=== PATIENT | female | born 1945 | race Caucasian/White ===

== ENCOUNTER 2016-12-25 07:59 | Emergency (ER) | payer MEDICARE ==
[~2016-12-25] VITALS: Ht 160 cm; Wt 61.4 kg
[~2016-12-25 07:59] MED LIST: ADVAIR DISK1 INH; ADVAIR HF1 IN; ADVAIR HF2; ADVIL200 MG; ALBUTEROL2.5 MG/31 IN; ALENDRONATE70 MG; ALENDRONATE70 MG PO; ALLEGRA180 MG PO; ALPHAGAN P0.1 % OU; ALPHAGAN5 ML OU; ALTOPREV20 MG; ALTOPREV20 MG OR; ATROVENT I0.5 MG/VIA IN; BABY ASPIRIN81 MG; BACTRIM DS1 TAB PO; BAYER LOW DOSE81 MG PO; BAYER LOW81 MG PO; BRIMONIDINE0.2 % OP; CALCIUM500 MG/D PO; CALCIUM600 M2 PO; CARVEDILOL6.25 MG PO; CENTRUM OR; CEPHALEXIN500 MG PO; CIPRO250 MG PO; COMBIVENT; COMBIVENT IN; COMBIVENT RESPIMAT IN; COREG6.25 MG PO; DOXYCYC MONO100 MG OR; EYE DROP3; FLAGYL ER750 MG PO; HYDROCO/APAP1 TA9 PO; LISINOPRIL20 MG PO; LORTAB 5 PO; Levaquin PO; MEDDOSEPAK PO; METFORMIN500 M1 PO; METFORMIN500 MG; METFORMIN500 MG PO; METFORMIN850 MG PO; MUCINEX600 MG PO; MULTI 501 PO; MULTIVITAMIN; OMEPRAZOLE40 MG PO; PRAVACHOL20 MG PO; PRAVASTATIN20 MG PO; PREDNISONE10 MG PO; PROAIR HFA IN; PROBIOTIC DAILY1 CAP PO; PROVENTIL0.083 % IN; QUINAPRIL5 MG; ROBITUSSIN AC10 ML PO; SPIRIVA IN; SPIRONOLACT25 MG PO; TAMOXIFEN CITRA20 MG PO; TRADJENTA5 MG PO; VITAMIN D400 UNI3 PO; XANAX0.25 MG PO; ZOFRAN4 MG/TAB PO; ZYLET1 ML OP; ZYLET1 ML OU; [UNRECOGNIZED DRUG - OTHER] PO
[2016-12-25] MEDS ORDERED: (None)3.5 GM OD (08:17)
[2016-12-25] MEDS ORDERED: CEPHALEXIN500 MG PO (08:17)
[2016-12-25] MEDS ORDERED: GENTAMICIN15 ML/BTL OD (08:17)
[2016-12-25 08:23] VITALS: BP 141/73
== END 2016-12-25 08:33 | disposition home or self-care (01) ==
LOC: ED 07:59
DX: H10.9 Unspecified conjunctivitis (principal)

== ENCOUNTER 2017-04-17 11:49 | Emergency (ER) | payer MEDICARE ==
[~2017-04-17] VITALS: Ht 160 cm; Wt 58.0 kg
[~2017-04-17 11:49] MED LIST changes: +(None)3.5 GM OD; +GENTAMICIN15 ML/BTL OD
[2017-04-17] MEDS ORDERED: TYLENOL 8 HOUR650 MG PO (12:16)
[2017-04-17] MEDS ORDERED: SYMBICORT1 AE1 IN (12:17)
[2017-04-17] MEDS ORDERED: FUROSEMIDE20 MG PO (12:17)
[2017-04-17] MEDS ORDERED: OMEPRAZOLE10 MG PO (12:18)
[2017-04-17 12:19] LABS: HEMATOCRIT 39.6 % (37.0-47.0); HEMOGLOBIN 12.6 g/dl (12.0-16.0); IMMATURE GRANULOCYTES 0.5 % (0.0-1.0); MEAN CORPUSCULAR HGB 31.2 pG CALC (26.0-32.0); MEAN CORPUSCULAR HGB CONC 31.8 g/L CALC (32.0-36.0); NEUT# 6.3 thou/uL (2.00-7.15); RED BLOOD COUNT 4.04 mill/uL (4.20-5.60); RED CELL DISTRI WIDTH 13.8 % (11.5-15.5)
[2017-04-17 12:35] LABS: ALBUMIN 4.1 g/dL (3.2-5.0); ALKALINE PHOSPHATASE 29 u/l (38-126); ANION GAP 15 (6-22 (CALC)); BILIRUBIN, TOTAL 0.4 mg/dL (0.0-1.4); BUN 20 mg/dL (8-23); BUN/CREATININE RATIO 33 (12-20 (CALC)); CALCIUM 8.6 mg/dL (8.4-10.2); CARBON DIOXIDE 29 mmol/l (22-30); CHLORIDE 100 mmol/l (95-108); CREATININE 0.6 mg/dL (0.5-1.0); GFR > 60 ML/MIN (>=60 (CALC)); GFR FOR AFR.AMER. > 60 ML/MIN (>=60 (CALC)); GLUCOSE 166 mg/dL (82-115); POTASSIUM 3.9 mmol/l (3.5-5.1); SGOT/AST 24 u/l (9-36); SGPT/ALT 32 u/l (11-66); SODIUM 141 mmol/l (137-146); TOTAL PROTEIN 6.4 g/dL (6.3-8.2)
[2017-04-17 12:47] LABS: MYOGLOBIN 30 ng/mL (0 - 62)
[2017-04-17] MEDS ORDERED: PREDNISONE50 MG PO ×2 (13:23→14:31)
[2017-04-17] MEDS ORDERED: LEVAQUIN500 MG PO ×2 (13:23→14:31)
[2017-04-17 14:20] VITALS: BP 137/67
[2017-04-17] MEDS ORDERED: MUCINEX600 MG PO (14:31)
== END 2017-04-17 14:57 | disposition home or self-care (01) ==
LOC: ED 11:49
PROVIDERS: Emergency Medicine
DX: J44.1 Chronic obstructive pulmonary disease with (acute) exacerbation (principal); I11.0 Hypertensive heart disease with heart failure; I50.9 Heart failure, unspecified; E11.9 Type 2 diabetes mellitus without complications; E78.5 Hyperlipidemia, unspecified; M19.90 Unspecified osteoarthritis, unspecified site

== ENCOUNTER 2017-05-03 17:05 | Inpatient (IN) | payer MEDICARE ==
[~2017-05-03] VITALS: Ht 160 cm; Wt 61.5 kg
[~2017-05-03 17:05] MED LIST changes: +FUROSEMIDE20 MG PO; +LEVAQUIN500 MG PO; +OMEPRAZOLE10 MG PO; +PREDNISONE50 MG PO; +SYMBICORT1 AE1 IN; +TYLENOL 8 HOUR650 MG PO
[2017-05-03 17:45] VITALS: BP 150/75
[2017-05-03 18:09] LABS: HEMATOCRIT 38.5 % (37.0-47.0); HEMOGLOBIN 12.2 g/dl (12.0-16.0); IMMATURE GRANULOCYTES 0.8 % (0.0-1.0); MEAN CELL VOLUME 97.7 fL CALC (80.0-100.0); MEAN CORPUSCULAR HGB CONC 31.7 g/L CALC (32.0-36.0); NEUT# 8.19 thou/uL (2.00-7.15); RED BLOOD COUNT 3.94 mill/uL (4.20-5.60); RED CELL DISTRI WIDTH 14.4 % (11.5-15.5)
[2017-05-03 18:26] LABS: ANION GAP 15 (6-22 (CALC)); BUN 18 mg/dL (8-23); BUN/CREATININE RATIO 31 (12-20 (CALC)); CALCIUM 9.3 mg/dL (8.4-10.2); CARBON DIOXIDE 27 mmol/l (22-30); CHLORIDE 102 mmol/l (95-108); CREATININE 0.6 mg/dL (0.5-1.0); GFR > 60 ML/MIN (>=60 (CALC)); GFR FOR AFR.AMER. > 60 ML/MIN (>=60 (CALC)); GLUCOSE 226 mg/dL (82-115); SODIUM 140 mmol/l (137-146)
[2017-05-03 19:30] VITALS: BP 107/51
[2017-05-04] VITALS (7 sets, daily range): BP systolic 105–139; BP diastolic 46–64
[2017-05-04 06:06] LABS: HEMATOCRIT 35.6 % (37.0-47.0); HEMOGLOBIN 11.4 g/dl (12.0-16.0); MEAN CELL VOLUME 96.7 fL CALC (80.0-100.0); RED BLOOD COUNT 3.68 mill/uL (4.20-5.60); RED CELL DISTRI WIDTH 14.3 % (11.5-15.5)
[2017-05-04 06:31] LABS: ANION GAP 15 (6-22 (CALC)); BUN 16 mg/dL (8-23); BUN/CREATININE RATIO 31 (12-20 (CALC)); CARBON DIOXIDE 27 mmol/l (22-30); CHLORIDE 103 mmol/l (95-108); CREATININE 0.5 mg/dL (0.5-1.0); GFR > 60 ML/MIN (>=60 (CALC)); GFR FOR AFR.AMER. > 60 ML/MIN (>=60 (CALC)); GLUCOSE 229 mg/dL (82-115); POTASSIUM 4.4 mmol/l (3.5-5.1); SODIUM 141 mmol/l (137-146)
[2017-05-04 06:32] LABS: URINE BILIRUBIN - DIPSTICK NEGATIVE (NEGATIVE); URINE BLOOD DIPSTICK NEGATIVE (NEGATIVE); URINE CLARITY SLIGHT CLOUDY; URINE COLOR YELLOW; URINE GLUCOSE - DIPSTICK NEGATIVE (NEGATIVE); URINE KETONE NEGATIVE (NEGATIVE); URINE LEUK ESTERASE TRACE (Negative); URINE NITRITE - DIPSTICK NEGATIVE (Negative); URINE PH 5.5 (4.5-8.0); URINE PROTEIN - DIPSTICK NEGATIVE (NEG-TRACE); URINE UROBILINOGEN - DIPSTICK 0.2 E.U./dL (0.2)
[2017-05-05 05:07] VITALS: BP 123/42
[2017-05-05 06:30] LABS: HEMATOCRIT 32.6 % (37.0-47.0); HEMOGLOBIN 10.5 g/dl (12.0-16.0); IMMATURE GRANULOCYTES 1.3 % (0.0-1.0); MEAN CELL VOLUME 96.7 fL CALC (80.0-100.0); MEAN CORPUSCULAR HGB 31.2 pG CALC (26.0-32.0); MEAN CORPUSCULAR HGB CONC 32.2 g/L CALC (32.0-36.0); NEUT# 13.87 thou/uL (2.00-7.15); RED BLOOD COUNT 3.37 mill/uL (4.20-5.60); RED CELL DISTRI WIDTH 14.1 % (11.5-15.5)
[2017-05-05 07:14] LABS: ANION GAP 16 (6-22 (CALC)); BUN 20 mg/dL (8-23); BUN/CREATININE RATIO 29 (12-20 (CALC)); CALCIUM 8.5 mg/dL (8.4-10.2); CARBON DIOXIDE 29 mmol/l (22-30); CHLORIDE 96 mmol/l (95-108); CREATININE 0.7 mg/dL (0.5-1.0); GFR > 60 ML/MIN (>=60 (CALC)); GFR FOR AFR.AMER. > 60 ML/MIN (>=60 (CALC)); GLUCOSE 270 mg/dL (82-115); MAGNESIUM 1.4 mg/dL (1.6-2.3); POTASSIUM 4.5 mmol/l (3.5-5.1); SODIUM 136 mmol/l (137-146)
[2017-05-05 07:19] VITALS: BP 159/63
[2017-05-05] MEDS ORDERED: BEVESPI AEROSPH1 AER IN (09:32)
[2017-05-05] MEDS ORDERED: SINGULAIR10 MG PO (09:34)
[2017-05-05] MEDS ORDERED: PREDNISONE10 MG PO (13:12)
[2017-05-05] MEDS ORDERED: VIBRAMYCIN100 M2 PO (13:12)
[2017-05-05] MEDS ORDERED: IPRATROPIU0.5 MG/3 M IN (13:12)
== END 2017-05-05 14:43 | disposition home health service (06) | DRG 189 ==
LOC: MS2 17:05
PROVIDERS: Nurse Practitioner Family; ADMIT Internal Medicine; ATTEND Internal Medicine
DX: J96.21 Acute and chronic respiratory failure with hypoxia (principal); I50.22 Chronic systolic (congestive) heart failure; J44.0 Chronic obstructive pulmonary disease with (acute) lower respiratory infection; Z99.81 Dependence on supplemental oxygen; J44.1 Chronic obstructive pulmonary disease with (acute) exacerbation; I51.81 Takotsubo syndrome; I10 Essential (primary) hypertension; E78.5 Hyperlipidemia, unspecified; E11.9 Type 2 diabetes mellitus without complications; M85.80 Other specified disorders of bone density and structure, unspecified site; K57.30 Diverticulosis of large intestine without perforation or abscess without bleeding; K52.9 Noninfective gastroenteritis and colitis, unspecified; R53.1 Weakness; K21.9 Gastro-esophageal reflux disease without esophagitis; H40.9 Unspecified glaucoma; J20.9 Acute bronchitis, unspecified; Z85.3 Personal history of malignant neoplasm of breast; Z92.3 Personal history of irradiation; Z90.12 Acquired absence of left breast and nipple; Z87.891 Personal history of nicotine dependence; Z79.84 Long term (current) use of oral hypoglycemic drugs

== ENCOUNTER 2017-08-16 09:41 | Inpatient (IN) | payer MEDICARE ==
[~2017-08-16] VITALS: Ht 160 cm; Wt 60.0 kg
[~2017-08-16 09:41] MED LIST changes: +BEVESPI AEROSPH1 AER IN; +IPRATROPIU0.5 MG/3 M IN; +SINGULAIR10 MG PO; +VIBRAMYCIN100 M2 PO
[2017-08-16 10:23] LABS: HEMATOCRIT 39.1 % (37.0-47.0); HEMOGLOBIN 12.6 g/dl (12.0-16.0); IMMATURE GRANULOCYTES 0.8 % (0.0-1.0); MEAN CELL VOLUME 97.3 fL CALC (80.0-100.0); MEAN CORPUSCULAR HGB 31.3 pG CALC (26.0-32.0); MEAN CORPUSCULAR HGB CONC 32.2 g/L CALC (32.0-36.0); NEUT# 10.45 thou/uL (2.00-7.15); RED BLOOD COUNT 4.02 mill/uL (4.20-5.60); RED CELL DISTRI WIDTH 16.6 % (11.5-15.5)
[2017-08-16 10:37] LABS: ALKALINE PHOSPHATASE 40 u/l (38-126); ANION GAP 15 (6-22 (CALC)); BILIRUBIN, TOTAL 0.7 mg/dL (0.0-1.4); BUN 17 mg/dL (8-23); BUN/CREATININE RATIO 29 (12-20 (CALC)); CALCIUM 9.4 mg/dL (8.4-10.2); CARBON DIOXIDE 30 mmol/l (22-30); CHLORIDE 97 mmol/l (95-108); CREATININE 0.6 mg/dL (0.5-1.0); GFR > 60 ML/MIN (>=60 (CALC)); GFR FOR AFR.AMER. > 60 ML/MIN (>=60 (CALC)); GLUCOSE 138 mg/dL (82-115); MAGNESIUM 1.7 mg/dL (1.6-2.3); POTASSIUM 4.2 mmol/l (3.5-5.1); SGOT/AST 25 u/l (9-36); SGPT/ALT 39 u/l (11-66); SODIUM 138 mmol/l (137-146); TOTAL PROTEIN 6.1 g/dL (6.3-8.2)
[2017-08-16] MEDS ORDERED: ARTIFI TEAR1 OP (10:44)
[2017-08-16 10:47] LABS: MYOGLOBIN 25 ng/mL (0 - 62)
[2017-08-16 13:39] VITALS: BP 173/65
[2017-08-16 13:50] VITALS: BP 142/48
[2017-08-16 17:23] LABS: URINE BILIRUBIN - DIPSTICK NEGATIVE (NEGATIVE); URINE BLOOD DIPSTICK NEGATIVE (NEGATIVE); URINE COLOR YELLOW; URINE GLUCOSE - DIPSTICK >=1000 mg/dL (NEGATIVE); URINE KETONE NEGATIVE (NEGATIVE); URINE LEUK ESTERASE NEGATIVE (NEGATIVE); URINE NITRITE - DIPSTICK NEGATIVE (Negative); URINE PROTEIN - DIPSTICK NEGATIVE (NEG-TRACE); URINE UROBILINOGEN - DIPSTICK 0.2 E.U./dL (0.2)
[2017-08-16 17:27] LABS: URINE CLARITY CLEAR
[2017-08-16 18:30] VITALS: BP 126/71
[2017-08-17] VITALS (7 sets, daily range): BP systolic 101–130; BP diastolic 53–77
[2017-08-17 05:57] LABS: HEMATOCRIT 38.3 % (37.0-47.0); HEMOGLOBIN 12.4 g/dl (12.0-16.0); IMMATURE GRANULOCYTES 1.4 % (0.0-1.0); MEAN CELL VOLUME 96.5 fL CALC (80.0-100.0); MEAN CORPUSCULAR HGB 31.2 pG CALC (26.0-32.0); MEAN CORPUSCULAR HGB CONC 32.4 g/L CALC (32.0-36.0); NEUT# 10.24 thou/uL (2.00-7.15); RED BLOOD COUNT 3.97 mill/uL (4.20-5.60); RED CELL DISTRI WIDTH 15.8 % (11.5-15.5)
[2017-08-17 06:12] LABS: ANION GAP 15 (6-22 (CALC)); BUN 21 mg/dL (8-23); BUN/CREATININE RATIO 36 (12-20 (CALC)); CALCIUM 8.9 mg/dL (8.4-10.2); CARBON DIOXIDE 31 mmol/l (22-30); CHLORIDE 94 mmol/l (95-108); CREATININE 0.6 mg/dL (0.5-1.0); GFR > 60 ML/MIN (>=60 (CALC)); GFR FOR AFR.AMER. > 60 ML/MIN (>=60 (CALC)); GLUCOSE 211 mg/dL (82-115); MAGNESIUM 1.7 mg/dL (1.6-2.3); POTASSIUM 4.5 mmol/l (3.5-5.1); SODIUM 136 mmol/l (137-146)
[2017-08-18 04:00] VITALS: BP 122/65
[2017-08-18 05:45] LABS: HEMATOCRIT 36.5 % (37.0-47.0); HEMOGLOBIN 11.7 g/dl (12.0-16.0); IMMATURE GRANULOCYTES 1.3 % (0.0-1.0); MEAN CELL VOLUME 96.8 fL CALC (80.0-100.0); MEAN CORPUSCULAR HGB CONC 32.1 g/L CALC (32.0-36.0); NEUT# 15.14 thou/uL (2.00-7.15); RED BLOOD COUNT 3.77 mill/uL (4.20-5.60); RED CELL DISTRI WIDTH 15.7 % (11.5-15.5)
[2017-08-18 05:46] LABS: ANION GAP 16 (6-22 (CALC)); BUN 23 mg/dL (8-23); BUN/CREATININE RATIO 40 (12-20 (CALC)); CALCIUM 8.9 mg/dL (8.4-10.2); CARBON DIOXIDE 26 mmol/l (22-30); CHLORIDE 98 mmol/l (95-108); CREATININE 0.6 mg/dL (0.5-1.0); GFR > 60 ML/MIN (>=60 (CALC)); GFR FOR AFR.AMER. > 60 ML/MIN (>=60 (CALC)); GLUCOSE 252 mg/dL (82-115); MAGNESIUM 1.8 mg/dL (1.6-2.3); SODIUM 135 mmol/l (137-146)
[2017-08-18 07:16] VITALS: BP 123/66
[2017-08-18 11:30] VITALS: BP 119/66
[2017-08-18 15:57] VITALS: BP 123/69
[2017-08-18 19:11] VITALS: BP 125/64
[2017-08-18 23:05] VITALS: BP 117/60
[2017-08-19 05:31] VITALS: BP 126/62
[2017-08-19 07:02] VITALS: BP 105/49
[2017-08-19 07:09] LABS: HEMATOCRIT 35.8 % (37.0-47.0); HEMOGLOBIN 11.7 g/dl (12.0-16.0); MEAN CORPUSCULAR HGB 31.4 pG CALC (26.0-32.0); MEAN CORPUSCULAR HGB CONC 32.7 g/L CALC (32.0-36.0); RED BLOOD COUNT 3.73 mill/uL (4.20-5.60); RED CELL DISTRI WIDTH 15.4 % (11.5-15.5)
[2017-08-19 07:12] LABS: BUN 22 mg/dL (8-23); BUN/CREATININE RATIO 38 (12-20 (CALC)); CALCIUM 9.2 mg/dL (8.4-10.2); CARBON DIOXIDE 30 mmol/l (22-30); CHLORIDE 97 mmol/l (95-108); CREATININE 0.6 mg/dL (0.5-1.0); GFR > 60 ML/MIN (>=60 (CALC)); GFR FOR AFR.AMER. > 60 ML/MIN (>=60 (CALC)); GLUCOSE 224 mg/dL (82-115); SODIUM 135 mmol/l (137-146)
[2017-08-19 07:17] LABS: ANION GAP 13 (6-22 (CALC)); POTASSIUM 5.3 mmol/l (3.5-5.1)
[2017-08-19 11:15] VITALS: BP 134/84
[2017-08-19] MEDS ORDERED: METO50TA52 PO (14:29)
[2017-08-19] MEDS ORDERED: DOXYCYCL HYC100 MG PO (14:29)
[2017-08-19] MEDS ORDERED: PREDNISONE20 MG PO (14:29)
[2017-08-19] MEDS ORDERED: LASIX20 MG PO (14:35)
== END 2017-08-19 16:05 | disposition home health service (06) | DRG 189 ==
LOC: ED 09:41 → ED-I 11:20 → ED 12:18 → MS2 12:19
PROVIDERS: Emergency Medicine; Nurse Practitioner Family; ADMIT Internal Medicine; ATTEND Internal Medicine
DX: J96.21 Acute and chronic respiratory failure with hypoxia (principal); I11.0 Hypertensive heart disease with heart failure; I50.9 Heart failure, unspecified; Z99.81 Dependence on supplemental oxygen; J44.1 Chronic obstructive pulmonary disease with (acute) exacerbation; J44.0 Chronic obstructive pulmonary disease with (acute) lower respiratory infection; J20.9 Acute bronchitis, unspecified; E11.9 Type 2 diabetes mellitus without complications; E78.5 Hyperlipidemia, unspecified; M19.90 Unspecified osteoarthritis, unspecified site; Z87.891 Personal history of nicotine dependence; Z79.84 Long term (current) use of oral hypoglycemic drugs; Z92.3 Personal history of irradiation; Z85.3 Personal history of malignant neoplasm of breast; Z90.10 Acquired absence of unspecified breast and nipple

== ENCOUNTER 2017-08-28 09:35 | Inpatient (IN) | payer MEDICARE ==
[~2017-08-28] VITALS: Ht 160 cm; Wt 59.7 kg
[~2017-08-28 09:35] MED LIST changes: +ARTIFI TEAR1 OP; +DOXYCYCL HYC100 MG PO; +LASIX20 MG PO; +METO50TA52 PO; +PREDNISONE20 MG PO
--- NOTE | 2017-08-28 09:42 | NUR ---
PATIENT TO ROOM VIA EMS AND PHYSICIAN AT BEDSIDE FOR EVALUATION
[2017-08-28 10:11] LABS: HEMATOCRIT 37.1 % (37.0-47.0); HEMOGLOBIN 11.6 g/dl (12.0-16.0); IMMATURE GRANULOCYTES 1.7 % (0.0-1.0); MEAN CELL VOLUME 99.7 fL CALC (80.0-100.0); MEAN CORPUSCULAR HGB 31.2 pG CALC (26.0-32.0); MEAN CORPUSCULAR HGB CONC 31.3 g/L CALC (32.0-36.0); NEUT# 15.5 thou/uL (2.00-7.15); RED BLOOD COUNT 3.72 mill/uL (4.20-5.60); RED CELL DISTRI WIDTH 16.2 % (11.5-15.5)
[2017-08-28 10:29] LABS: ALBUMIN 3.8 g/dL (3.2-5.0); ALKALINE PHOSPHATASE 43 u/l (38-126); ANION GAP 14 (6-22 (CALC)); BILIRUBIN, TOTAL 0.4 mg/dL (0.0-1.4); BUN 10 mg/dL (8-23); BUN/CREATININE RATIO 19 (12-20 (CALC)); CALCIUM 9.3 mg/dL (8.4-10.2); CARBON DIOXIDE 31 mmol/l (22-30); CHLORIDE 94 mmol/l (95-108); CREATININE 0.5 mg/dL (0.5-1.0); GFR > 60 ML/MIN (>=60 (CALC)); GFR FOR AFR.AMER. > 60 ML/MIN (>=60 (CALC)); GLUCOSE 266 mg/dL (82-115); POTASSIUM 4.3 mmol/l (3.5-5.1); SGOT/AST 32 u/l (9-36); SGPT/ALT 35 u/l (11-66); SODIUM 135 mmol/l (137-146); TOTAL PROTEIN 6.1 g/dL (6.3-8.2)
[2017-08-28 10:41] LABS: MYOGLOBIN 35 ng/mL (0 - 62)
--- NOTE | 2017-08-28 11:18 | NUR ---
PT PROVIDED NEB TX AND SOLUMEDROL SINCE ARRIVAL TO ROOM.
--- NOTE | 2017-08-28 12:20 | NUR ---
SBAR PRINTED TO FLOOR
--- NOTE | 2017-08-28 12:58 | NUR ---
REPORT CALLED TO LORRAINE Gill
--- NOTE | 2017-08-28 13:05 | NUR ---
FROM ER VIA STRETCHER ACCOMPANIED BY ELIZA DAVIS. TRANSFERRED TO BED WITH MAX ASSIST. RESPS EVEN AND UNLABORED ON O2 VIA NC. VOICES NO NEEDS AT THIS TIME. ORIENTED TO ROOM AND CALL SYSTEM. SAFETY PRECAUTIONS REINFORCED. BED IN LOWEST POSITION WITH WHEELS LOCKED. CALL LIGHT WITHIN REACH. WILL CONTINUE TO MONITOR.
--- NOTE | 2017-08-28 13:17 | NUR ---
PT TAKEN TO ROOM WITHOUT INCIDENT.
[2017-08-28 13:26] VITALS: BP 146/63
[2017-08-28 14:30] VITALS: BP 146/63
--- NOTE | 2017-08-28 15:40 | NUR ---
PHONE CALL TO DR DIAZ, NEW ORDERS RECEIVED.
[2017-08-28 16:00] VITALS: BP 119/67
--- NOTE | 2017-08-28 16:00 | NUR ---
SITTING IN BEDSIDE CHAIR. RESPS EVEN AND UNLABORED ON O2 VIA NC. VOICES NO NEEDS AT THIS TIME. CALL LIGHT WITHIN REACH. WILL CONTINUE TO MONITOR.
[2017-08-28 19:15] VITALS: BP 123/64
--- NOTE | 2017-08-28 19:30 | NUR ---
PATIENT RESTING IN BED AT THIS TIME WITH O2 VIA NASAL CANNULA IN PLACE. PATIENT AWAKE ALERT AND ORIENTEDX3. PATIENT WITH HEP LOCK TO LEFT FOREARM-SITE APPEARS HEALTHY AT THIS TIME. SAFETY PRECAUTIONS REINFORCED.CALL LIGHT IN REACH. WILL CONT TO MONITOR.
--- NOTE | 2017-08-28 21:18 | NUR ---
PATIENT RESTING IN BED AT THIS TIME WITH O2 VIA NASAL CANNULA IN PLACE. PATIENT IS RECIEVING NEB TREATMENT AT THIS TIME. PATIENT WAS MEDICATED WITH XANAX 0.5MG PO FOR ANXIETY AND SLEEP. PATIENT WITH HEP LOCK TO LEFT FOREARM SITE-APPEARS HEALTHY AT THIS TIME. STATES THAT SHE JUST HAD LIQUID STOOL TONIGHT-STATES THAT SHE HAS BEEN HAVING LOOSE SOOL FOR SEVERAL WEEKS AT HOME. SAFETY PRECAUTIONS REINFORCED. CALL LIGHT IN REACH. WILL CONT TO MONITOR.
[2017-08-28 23:52] VITALS: BP 130/60
--- NOTE | 2017-08-29 03:15 | NUR ---
APPEARS SLEEPING AT THIS TIME WITH HOB ELEVATED AND O2 VIA NASAL CANNULA IN PLACE. CALL LIGHT IN REACH. WILL CONT TO MONITOR.
[2017-08-29 04:00] VITALS: BP 127/70
--- NOTE | 2017-08-29 07:00 | NUR ---
RECEIVED BEDSIDE REPORT FROM SHAUNA DAVIS. RESTING IN HIGH FOWLERS, RESPS EVEN AND UNLABORED ON O2 VIA NC. VOICES NO NEEDS AT THIS TIME. PLAN OF CARE DISCUSSED. SAFETY PRECAUTIONS REINFORCED. BED IN LOWEST POSITION WITH WHEELS LOCKED. CALL LIGHT WITHIN REACH. ENCOURAGED PT TO CALL FOR ANY NEEDS.
[2017-08-29 07:45] VITALS: BP 124/64
--- NOTE | 2017-08-29 10:35 | NUR ---
DR DIAZ IN WITH PT, NEW ORDERS RECEIVED.
--- NOTE | 2017-08-29 13:42 | NUR ---
SITTING IN BEDSIDE CHAIR EATING LUNCH. RESPS EVEN AND UNLABORED ON O2 VIA NC. VOICES NO NEEDS AT THIS TIME. CALL LIGHT WITHIN REACH. ENCOURAGED PT TO CALL FOR ANY NEEDS.
[2017-08-29 16:33] VITALS: BP 101/62
--- NOTE | 2017-08-29 17:28 | NUR ---
SITTING ON EDGE OF BED WITH FEET DANGLING EATING DINNER. RESPS EVEN AND UNLABORED ON O2 VIA NC. VOICES NO NEEDS AT THIS TIME. CALL LIGHT WITHIN REACH. WILL CONTINUE TO MONITOR.
--- NOTE | 2017-08-29 19:30 | NUR ---
PT RESTING IN BED. PT ALERT AND ORIENTED. RESP EVEN AND UNLABORED ON O2 2L. NO DISTRESS NOTED. LUNGS DIMINISHED BILAT. ABD SOFT, BOWEL SOUNDS ACTIVE. PT STATES SHE HAD A BM TODAY. PEDAL PULSES PALPATED BILAT. IV LFA PATENT, FLUSHED WITHOUT ANY DIFFICULTY. PT REPOSITIONED FOR COMFORT. PT DENIES ANY PAIN OR DISCOMFORT. FREQUENT ROUNDS MADE. CALL LIGHT WITHIN REACH.
[2017-08-29 20:09] VITALS: BP 127/58
--- NOTE | 2017-08-30 00:06 | NUR ---
PT APPEARS TO BE SLEEPING WITH EYES CLOSED. RESP EVEN AND UNLABORED. NO DISTRESS NOTED. CALL LIGHT WITHIN REACH.
--- NOTE | 2017-08-30 04:20 | NUR ---
PT ASSISTED TO BSC. PT VOIDED 300 OF YELLOW URINE. PT ASSISTED BACK TO BED. RESP EVEN AND UNLABORED WITH O2 IN PLACE. NO DISTRESS NOTED. PT DENIES ANY PAIN OR DISCOMFORT. CALL LIGHT WITHIN REACH.
[2017-08-30 04:31] VITALS: BP 119/62
--- NOTE | 2017-08-30 07:00 | NUR ---
SHIFT CHANGE REPORT FROM KELLY PT AWAKE ALERT AND ORIENTED RESTING IN BED, ASSISTED TO RECLINER AND SET UP FOR MEAL, NO C/O PAIN/DISCOMFORT, O2 @ 2L VIA NC IN PLACE, CALL ALEXANDER IN REACH.
--- NOTE | 2017-08-30 07:20 | NUR ---
REPORT GIVEN TO RYAN LIU. PT DENIES ANY PAIN OR DISCOMFORT AT THIS TIME. PT UP TO BEDSIDE CHAIR FOR BREAKFAST. RESP EVEN AND UNLABORED WITH O2 IN PLACE. CALL LIGHT WITHIN REACH.
[2017-08-30 07:59] VITALS: BP 119/56
--- NOTE | 2017-08-30 09:46 | NUR ---
DR DIAZ RUNDED WITH PT, WROTE NEW ORDERS.
[2017-08-30 16:42] VITALS: BP 136/56
[2017-08-30 19:05] VITALS: BP 134/61
--- NOTE | 2017-08-30 19:51 | NUR ---
PATIENT RESTING IN BED WITH HOB ELEVATED AND O2 VIA NASAL CANNULA IN PLACE. PATIENT APPEARS SLEEPING IN NO ACUTE DISTRESS. CALL LIGHT IN REACH. WILL CONT TO MONITOR.
[2017-08-30 20:12] LABS: C. DIFFICILE TOXIN A&B NEGATIVE (NEGATIVE)
--- NOTE | 2017-08-30 21:30 | NUR ---
PATIENT SITTING ON THE SIDE OF THE BED WITH O2 VIA NASAL CANNULA IN PLACE. PATIENT IS SOB AT REST. PATIENT IS ALSO VERY SHAKEY. HEP LOCK TO LEFT FOREARM INPLACE. STOOL SPEC OBTAINED AND SENT TO LAB. HS MEDS GIVEN ORDRED ALONG WITH XANAX PER PATIENT REQUEST. SAFETY PRECAUTIONS REINFORCED. CALL LIGHT IN REACH. WILL CONT TO MONITOR.
--- NOTE | 2017-08-31 | NUR ---
APPEARS SLEEPINT AT THIS TIME WITH O2 VIA NASAL CANNULA IN PLACE AND EYES CLOSED. CALL LIGHT IN REACH. WILL CONT TO MONITOR.
[2017-08-31 00:09] VITALS: BP 115/59
[2017-08-31 04:41] VITALS: BP 138/60
--- NOTE | 2017-08-31 04:52 | NUR ---
PATIENT MEDICATED FOR C/O HEADACHE-8/10 ON PAIN SCALE WITH TYLENOL 650MG PO ORDERED. RESTING IN BED WITH O2 VIA NASAL CANNULA. SAFETY PRECAUTIONS REINFORCED. CALL LIGHT IN REACH. WILL CONT TO MONITOR.
--- NOTE | 2017-08-31 07:34 | NUR ---
REPORT RECEIVED FROM RYAN VILLATORO. PT SITTING IN CHAIR AT BEDSIDE. REPORTS "I JUST CANT BREATH." NO DISTRESS NOTED. PLAN OF CARE DISCUSSED. REPORTING OF CONCERNS ENCOURAGED. CALL LIGHT REVIEWED AND IN REACH. PT STATES UNDERSTANDING.
[2017-08-31 08:08] VITALS: BP 131/69
--- NOTE | 2017-08-31 10:16 | NUR ---
DR. DIAZ IN TO SEE PT AT THIS TIME.
[2017-08-31 10:56] LABS: URINE BILIRUBIN - DIPSTICK NEGATIVE (NEGATIVE); URINE BLOOD DIPSTICK NEGATIVE (NEGATIVE); URINE COLOR YELLOW; URINE GLUCOSE - DIPSTICK NEGATIVE (NEGATIVE); URINE KETONE NEGATIVE (NEGATIVE); URINE LEUK ESTERASE TRACE (NEGATIVE); URINE NITRITE - DIPSTICK NEGATIVE (Negative); URINE PH 5.5 (4.5-8.0); URINE PROTEIN - DIPSTICK NEGATIVE (NEG-TRACE); URINE UROBILINOGEN - DIPSTICK 0.2 E.U./dL (0.2)
[2017-08-31 11:09] LABS: URINE CLARITY CLEAR
--- NOTE | 2017-08-31 12:20 | NUR ---
PT SITTIGN IN CHAIR AT BEDSIDE. SLEEPING. WILL CONTINUE TO MONITOR.
--- NOTE | 2017-08-31 14:00 | NUR ---
PT REPORTS HEADACHE. TYLENOL PO ADMINISTERED.WILL MONITOR FOR EFFECTIVENESS.
--- NOTE | 2017-08-31 14:55 | NUR ---
PT IN BED, SLEEPING. CALL LIGHT WITHIN REACH.
--- NOTE | 2017-08-31 16:04 | NUR ---
PT AGAIN REPORTS SEVERE HEADACHE, STATES NEVER RELIEVED FROM PREVIOUS ADMINISTRATION. TRAMADOL ORDERED AND FIRST DOSE ADMINISTERED. WILL MONITOR FOR EFFECTIVENESS.
[2017-08-31 16:33] VITALS: BP 137/66
--- NOTE | 2017-08-31 17:26 | NUR ---
PT SAYS SHE IS DOING GOOD NOW AND WILL CALL IF SHE NEEDS A TX
--- NOTE | 2017-08-31 18:27 | NUR ---
PT REPORTS RELIEF OF HEADACHE FROM RECENT TRAMADOL ADMINISTRATION. PT ENCOURAGED TO REPORT FURTHER CONCERNS.
--- NOTE | 2017-08-31 20:00 | NUR ---
PATEINT RESTING IN BED AT THIS TIME WITH O2 VIA NASAL CANNULA IN PLACE AT 2LPM. PATIENT IS AWAKE ALERT AND ORIENTEDX3. PATIENT IS SOB EVEN AT REST. PATIENT IS AWAITING REHAB PLACEMENT. HEP LOCK TO LEFT FOREARM INTACT-SITE APPEARS HEALTHY AT THIS TIME. PATIENT WAS ASSISTED TO BSC TO VOID CLEAR YELLOW URINE. UNSTEADY ON HER FEET. SAFETY PRECAUTIONS REINFORCED. CALL LIGHT IN REACH. WILL CONT TO MONITOR.
[2017-08-31 20:15] VITALS: BP 119/69
--- NOTE | 2017-08-31 21:24 | NUR ---
[id number] WITH 2UNITS OF NOVALOG PER PROTOCOL. HS SNACK PROVIDED TO PATIENT. SAFETY PRECAUTIONS REINFORCED. CALL LIGHT IN REACH. WILL CONT TO MONITOR.
--- NOTE | 2017-08-31 23:48 | NUR ---
PATIENT APPEARS SLEEPING WITH HOB ELEVATED AND O2 VIA NASAL CNANULA IN PLACE. CALL LIGHT IN REACH. WILL CONT TO MONITOR.
[2017-09-01 03:35] VITALS: BP 144/71
--- NOTE | 2017-09-01 03:58 | NUR ---
PATIENT APPEARS SLEEPING AT THIS TIME WITH HOB ELEVATED AND O2 VIA NASAL CANNULA IN PLACE. CALL LIGHT IN REACH. WILL CONT TO MONITOR.
[2017-09-01 05:28] LABS: HEMATOCRIT 37.1 % (37.0-47.0); HEMOGLOBIN 11.5 g/dl (12.0-16.0); IMMATURE GRANULOCYTES 4.4 % (0.0-1.0); MEAN CELL VOLUME 99.5 fL CALC (80.0-100.0); MEAN CORPUSCULAR HGB 30.8 pG CALC (26.0-32.0); NEUT# 10.93 thou/uL (2.00-7.15); RED BLOOD COUNT 3.73 mill/uL (4.20-5.60); RED CELL DISTRI WIDTH 15.9 % (11.5-15.5)
[2017-09-01 05:34] LABS: ANION GAP 13 (6-22 (CALC)); BUN 18 mg/dL (8-23); BUN/CREATININE RATIO 36 (12-20 (CALC)); CARBON DIOXIDE 38 mmol/l (22-30); CHLORIDE 90 mmol/l (95-108); CREATININE 0.5 mg/dL (0.5-1.0); GFR > 60 ML/MIN (>=60 (CALC)); GFR FOR AFR.AMER. > 60 ML/MIN (>=60 (CALC)); GLUCOSE 150 mg/dL (82-115); MAGNESIUM 1.5 mg/dL (1.6-2.3); POTASSIUM 4.8 mmol/l (3.5-5.1); SODIUM 136 mmol/l (137-146)
--- NOTE | 2017-09-01 05:53 | NUR ---
PATIENT SITTING UP IN THE CHAIR AT THIS TIME WITH O2 VIA NASAL CANNULA IN PLACE. CALL LIGHT IN REACH. WILL CONT TO MONITOR.
--- NOTE | 2017-09-01 07:00 | NUR ---
RECEIVED BEDSIDE REPORT FROM SHAUNA DAVIS. SITTING IN BEDSIDE CHAIR, RESPS EVEN AND UNLABORED ON O2 VIA NC. VOICES NO NEEDS AT THIS TIME. PLAN OF CARE DISCUSSED. SAFETY PRECAUTIONS REINFORCED. BED IN LOWEST POSITION WITH WHEELS LOCKED. CALL LIGHT WITHIN REACH. ENCOURAGED PT TO CALL FOR ANY NEEDS.
[2017-09-01 07:38] VITALS: BP 119/59
--- NOTE | 2017-09-01 10:00 | NUR ---
DR BELLO IN WITH PT, NEW ORDERS RECEVED.
--- NOTE | 2017-09-01 10:25 | NUR ---
SITTING ON EDGE OF BED. RESPS EVEN AND UNLABORED ON O2 VIA NC, EXERTIONAL SHORTNESS NOTED. #22 LFA INFUSING WITHOUT DIFFICULTY, SITE APPEARS HEALTHY. MEDICATED WITH ULTRAM PO C/O 5/10 HEADACHE. CALL LIGHT WITHIN REACH. WILL CONTINUE TO MONITOR.
[2017-09-01] MEDS ORDERED: PREDNISONE20 MG PO (13:27)
--- NOTE | 2017-09-01 13:40 | NUR ---
PHYSICAL THERAPY IN WITH PT.
[2017-09-01] MEDS ORDERED: TRAMADOL HYDROC50 MG PO (13:51)
[2017-09-01] MEDS ORDERED: XANAX0.5 MG PO (13:52)
--- NOTE | 2017-09-01 15:38 | NUR ---
Discharge instructions given. Patient verbalizes understanding of same. Discharged in stable condition via Wheel[facility] to [facility] with [facility]. All belongings sent with pt. TO [facility]IA [facility]
--- NOTE | 2017-09-01 16:28 | NUR ---
NURSE TO NURSE REPORT CALLED TO MARS GASTON AT [facility].
== END 2017-09-01 15:36 | DRG 189 ==
LOC: ED 09:35 → ED-I 12:03 → ED 12:28 → MS2 12:29
PROVIDERS: Emergency Medicine; Nurse Practitioner Family; ADMIT Internal Medicine; ATTEND Internal Medicine
DX: J96.20 Acute and chronic respiratory failure, unspecified whether with hypoxia or hypercapnia (principal); E11.51 Type 2 diabetes mellitus with diabetic peripheral angiopathy without gangrene; Z99.81 Dependence on supplemental oxygen; J44.1 Chronic obstructive pulmonary disease with (acute) exacerbation; E78.5 Hyperlipidemia, unspecified; I10 Essential (primary) hypertension; E83.42 Hypomagnesemia; H40.9 Unspecified glaucoma; F32.9 Major depressive disorder, single episode, unspecified; F41.9 Anxiety disorder, unspecified; Z85.3 Personal history of malignant neoplasm of breast; Z87.891 Personal history of nicotine dependence